=== PATIENT | female | born 1965 | race Caucasian/White ===

== ENCOUNTER 2016-11-25 10:30 | Emergency (ER) | payer OTHER ==
[~2016-11-25] VITALS: Ht 157.5 cm; Wt 70.0 kg
[2016-11-25 10:34] VITALS: Ht 157.5 cm; Wt 70.0 kg
[2016-11-25] MEDS ORDERED: IBUPROFEN 600 MG TAB PO ONE (12:30)
--- NOTE | 2016-11-25 13:24 | RADRPT ---
PROCEDURE: XR right Hand. CLINICAL INDICATION: Right hand pain at base of thumb and interphalangeal joint TECHNIQUE: Three views of the right hand were obtained. COMPARISON: No prior studies are available for comparison. FINDINGS: There is no radiographic evidence of acute fracture. There is a chronic-appearing well circumscribe d cyst in the distal scaphoid measuring 5 mm, possibly degenerative in nature. Joint spaces are pre served. The soft tissues appear grossly unremarkable. IMPRESSION: 1. No radiographic evidence of acute osseous abnormality. 2. A 5 mm nonaggressive appearing likely degenerative cyst at the distal pole of the scaphoid. RPTAT: [facility] .Reynold Brooks MD, MD Date Time Electronically viewed and signed by .Reynold Brooks MD, on 11/25/2016 13:24 .K/
--- NOTE | 2016-11-25 14:00 | ERD ---
ER Documentation Chief Complaint Date/Time DATE: 11/25/16 Chief Complaint Right thumb pain x 1 week HPI The patient is a 51-year-old female who presents to the emergency department with complaint of right thumb pain intermittently over the past week. The patient notes that over the past week she has been experiencing "popping" at the MCP and DIP joints of the right thumb, and over the past several days has been experiencing intermittent dislocations to the DIP joint of the right thumb , which she has been reducing herself. She notes pain with flexion at the MCP and DIP joints. She rates her current discomfort as 5/10. The patient reports that she has an upcoming appointment with her primary medical provider during the first week of December. Because she was not able to be seen sooner, she was advised to present to the ED for x-ray imaging. Therefore, she presents today requesting imaging and a splint. ROS All systems reviewed and are negative except as per history of present illness. Medications Home Meds Active Scripts Ibuprofen* (Motrin*) 600 Mg Tab, 600 MG PO Q6, #30 TAB Prov:TESSA BIGGS PA-C 11/25/16 Allergies Allergies: Coded Allergies: No Known Allergy (Unverified , 11/25/16) PMhx/Soc History of Surgery: Yes (RT KNEE , C SECTION ) Anesthesia Reaction: No Hx Neurological Disorder: No Hx Respiratory Disorders: No Hx Cardiac Disorders: No Hx Psychiatric Problems: No Hx Miscellaneous Medical Probl: No Hx Alcohol Use: Yes Hx Substance Use: No Hx Tobacco Use: Yes Smoking Status: Current every day smoker Physical Exam Vitals Vital Signs Date Time Temp Pulse Resp B/P Pulse Ox O2 Delivery O2 Flow Rate FiO2 11/25/16 14:37 98.1 69 18 139/72 99 Room Air 11/25/16 10:34 98.1 69 18 149/69 99 Physical Exam Const: Well-developed, well-nourished, in no acute distress. Head: Atraumatic Eyes: Normal Conjunctiva ENT: Moist mucous membranes. Resp: Normal respiratory effort. Cardio: Normal peripheral perfusion. Skin: No ecchymosis. No swelling. No abrasions/lacerations. Ext: No clubbing, cyanosis, or edema. Tenderness to palpation over the right MCP and DIP joints of the right thumb, particularly with flexion. No gross deformities. Normal flexion and extension. No wrist drop. No snuffbox tenderness. Capillary refill < 2 seconds. Radial and ulnar pulses 2+. Neur: Awake and alert Psych: Normal Mood and Affect Results 24 hrs Current Medications Medications (Trade) Dose Ordered Sig/Marina Route PRN Reason Start Time Stop Time Status Last Admin Dose Admin Ibuprofen (Motrin) 600 mg ONCE ONCE PO 11/25/16 12:30 11/25/16 12:31 DC 11/25/16 12:28 Procedures/MDM DIAGNOSTIC TESTS AND INTERPRETATION: PROCEDURE: XR right Hand. CLINICAL INDICATION: Right hand pain at base of thumb and interphalangeal joint TECHNIQUE: Three views of the right hand were obtained. COMPARISON: No prior studies are available for comparison. FINDINGS:There is no radiographic evidence of acute fracture. There is a chronic-appearing well circumscribed cyst in the distal scaphoid measuring 5 mm , possibly degenerative in nature. Joint spaces are preserved. The soft tissues appear grossly unremarkable. IMPRESSION: 1. No radiographic evidence of acute osseous abnormality. 2. A 5 mm nonaggressive appearing likely degenerative cyst at the distal pole of the scaphoid. .Reynold Brooks MD, MD Date Time Electronically viewed and signed by .Reynold Brooks MD, MD on 11/25/2016 13: 24 SPLINT APPLICATION: INDICATION: Right thumb pain LOCATION: Right upper extremity. TYPE OF SPLINT: Thumb spica splint. NEUROVASCULAR EXAM: The patients extremity was neurovascularly intact prior to and status post splint placement. MEDICAL DECISION MAKING: This is a 51-year-old female presenting to the Emergency Department with complaint of right thumb pain for the past week, with several episodes of dislocation at the DIP joint which she has self-reduced. She has not yet seen an customer resolution specialist since onset of these symptoms. Denies recent falls, injuries or trauma to the extremity. She was neurovascularly intact on examination, with normal range of motion and no gross deformities. No snuffbox tenderness noted. No fractures, dislocations or subluxations noted on x-ray imaging. At this time, the patient is stable to be discharged home. She is advised to follow up with her primary medical provider and obtain a referral to orthopedics for reevaluation and further management in 2-3 days or return to the ED sooner for any new or worsening symptoms. Departure Diagnosis: Primary Impression: Pain of right thumb Condition: Stable Patient Instructions: Dislocation, Thumb Additional Instructions: Call your primary care doctor TOMORROW for an appointment during the next 1-2 days for further evaluation and management. You may need to see an customer resolution specialist as well. See the doctor sooner or return here if your condition worsens before your appointment time. TESSA BIGGS PA-C Nov 25, 2016 14:00
[2016-11-25] MEDS ORDERED: IBUP-1542 PO (14:01)
[2016-11-25 14:37] VITALS: BP 139/72; PULSE 69; RESP 18; TEMP 98.1
== END 2016-11-25 14:38 | disposition home or self-care (01) ==
LOC: FTE 10:30
DX: M79.644 Pain in right finger(s) (principal); F17.210 Nicotine dependence, cigarettes, uncomplicated
CPT/HCPCS: 29130; 73130; Z7502; Z7610